=== PATIENT | female | born 2000 | race Caucasian/White ===

== ENCOUNTER 2023-04-22 18:00 | Emergency (ER) | payer MEDICAID, SELFPAY ==
[~2023-04-22] VITALS: Ht 152.4 cm; Wt 78.6 kg
[2023-04-22] MEDS ORDERED: MULTTAB20 PO (18:09)
[2023-04-22] MEDS ORDERED: ACET-683 PO (18:09)
[2023-04-22] MEDS ORDERED: METOCLOPRAMIDE INJ 10MG/2ML VIAL IV ONE (20:20)
[2023-04-22 21:13] LABS: BASO % 0.2 % (0.0-1.0); HEMATOCRIT 38.1 % (36.0-47.0); HEMOGLOBIN 13.4 g/dl (12.0-15.5); LYMPH # 1.6 10^3/uL (1.5-5.0); LYMPH % 11.6 % (24.0-44.0); MEAN CORPUSCULAR HEMOGLOBIN 29.6 pg (27.0-33.0); MEAN CORPUSCULAR HGB CONC 35.2 g/dl (32.0-36.5); MEAN CORPUSCULAR VOLUME 84.3 fl (80.0-96.0); MONO # 0.5 10^3/uL (0.0-0.8); MONO % 3.8 % (2.0-8.0); NEUTROPHILS # 11.8 10^3/uL (1.5-8.5); NEUTROPHILS % 84.1 % (36.0-66.0); PLATELET COUNT, AUTOMATED 250 10^3/uL (150-450); RED BLOOD COUNT 4.52 10^6/uL (4.00-5.40)
[2023-04-22 21:37] LABS: LIPASE 40 U/L (12-53)
[2023-04-22 21:39] LABS: ALKALINE PHOSPHATASE 71 U/L (46-116); ALT/SGPT 12 U/L (7.0-40); AST/SGOT 15 U/L (<34); BILIRUBIN,DIRECT 0.3 MG/DL (<0.4); BILIRUBIN,TOTAL 0.9 MG/DL (0.3-1.2); BLOOD UREA NITROGEN 8 MG/DL (9-23); CALCIUM LEVEL 9.3 MG/DL (8.5-10.1); CARBON DIOXIDE LEVEL 21 MMOL/L (20-31); CHLORIDE LEVEL 105 MMOL/L (98-107); CREATININE FOR GFR 0.39 MG/DL (0.55-1.30); GLOMERULAR FILTRATION RATE > 60.0 (>60); GLUCOSE, FASTING 88 MG/DL (60-100); POTASSIUM SERUM 3.9 MMOL/L (3.5-5.1); SODIUM LEVEL 139 MMOL/L (136-145); TOTAL PROTEIN 7.5 G/DL (5.7-8.2)
[2023-04-22 22:06] LABS: HCG, SERUM QUANTITATIVE 105521.6 MIU/ML (<4.2)
[2023-04-22 23:21] VITALS: BP 132/67; TEMP 97.6; O2SAT 99
[2023-04-22] MEDS ORDERED: REGL10TA6 PO (23:21)
== END 2023-04-22 23:32 | disposition home or self-care (01) ==
LOC: M ED 18:00
DX: O21.0 Mild hyperemesis gravidarum (principal)
CPT/HCPCS: 36415; 76801; 80048; 80076; 83690; 84702; 85025; 86850; 86900; 86901; 93976; 96374; 99284; J2765

== ENCOUNTER → 2023-05-13 | Outpatient (REF) ==
[~2023-05-13] MED LIST: ACET-683 PO; MULTTAB20 PO; REGL10TA6 PO
== END ==
LOC: M LAB 13:48
PROVIDERS: ATTEND Nurse Practitioner Adult Health
DX: Z02.1 Encounter for pre-employment examination (principal)

== ENCOUNTER → 2023-07-08 | Outpatient (CLI) | payer MEDICAID, OTHER | LOC: M WHC 12:52 | PROVIDERS: ATTEND Obstetrics & Gynecology | DX: O99.340 Other mental disorders complicating pregnancy, unspecified trimester (principal) ==

== ENCOUNTER → 2023-08-10 | Outpatient (CLI) | payer OTHER ==
[2023-08-10 16:26] LABS: HEMATOCRIT 35.2 % (36.0-47.0); HEMOGLOBIN 11.8 g/dl (12.0-15.5); MEAN CORPUSCULAR HEMOGLOBIN 30.4 pg (27.0-33.0); MEAN CORPUSCULAR HGB CONC 33.5 g/dl (32.0-36.5); MEAN CORPUSCULAR VOLUME 90.7 fl (80.0-96.0); PLATELET COUNT, AUTOMATED 220 10^3/uL (150-450); RED BLOOD COUNT 3.88 10^6/uL (4.00-5.40); WHITE BLOOD COUNT 11.2 10^3/uL (4.0-10.0)
[2023-08-10 17:18] LABS: HIV 1&2 SCREEN NEGATIVE (NEGATIVE)
[2023-08-10 17:25] LABS: HEPATITIS C VIRUS ABY INDEX < 0.02 INDEX (<0.8)
== END ==
LOC: M PLALAB 13:52
PROVIDERS: ATTEND Specialist
DX: Z34.02 Encounter for supervision of normal first pregnancy, second trimester (principal)

== ENCOUNTER → 2023-08-10 | Outpatient (CLI) | payer OTHER | LOC: M WHC 13:48 | PROVIDERS: ATTEND Specialist | DX: Z34.02 Encounter for supervision of normal first pregnancy, second trimester (principal) ==

== ENCOUNTER → 2023-08-18 | Outpatient (REF) | payer OTHER | LOC: M PLALAB 09:20 | PROVIDERS: ATTEND Obstetrics & Gynecology | DX: Z34.92 Encounter for supervision of normal pregnancy, unspecified, second trimester (principal); R82.90 Unspecified abnormal findings in urine ==

== ENCOUNTER → 2023-09-24 | Outpatient (CLI) | payer OTHER ==
[2023-09-24 17:47] LABS: HEMATOCRIT 34.1 % (36.0-47.0); HEMOGLOBIN 11.4 g/dl (12.0-15.5); MEAN CORPUSCULAR HEMOGLOBIN 29.7 pg (27.0-33.0); MEAN CORPUSCULAR HGB CONC 33.4 g/dl (32.0-36.5); MEAN CORPUSCULAR VOLUME 88.8 fl (80.0-96.0); PLATELET COUNT, AUTOMATED 228 10^3/uL (150-450); RED BLOOD COUNT 3.84 10^6/uL (4.00-5.40)
[2023-09-24 19:20] LABS: GC DNA AMPLIFICATION NEGATIVE (NEGATIVE)
== END ==
LOC: M PLALAB 15:01 → M LAB 15:01
PROVIDERS: ATTEND Obstetrics & Gynecology
DX: Z34.92 Encounter for supervision of normal pregnancy, unspecified, second trimester (principal)

== ENCOUNTER → 2023-10-20 | Outpatient (REF) | payer OTHER | LOC: M PLALAB 14:03 | PROVIDERS: ATTEND Obstetrics & Gynecology | DX: Z36.89 Encounter for other specified antenatal screening (principal); Z3A.36 36 weeks gestation of pregnancy ==

== ENCOUNTER 2023-10-24 01:32 | Emergency (ER) | payer OTHER ==
[2023-10-24 01:33] VITALS: BP 134/80; TEMP 97.8; O2SAT 92
== END 2023-10-24 01:45 | disposition admitted as inpatient to this hospital (09) ==
LOC: M ED 01:32
DX: Z53.21 Procedure and treatment not carried out due to patient leaving prior to being seen by health care provider (principal)

== ENCOUNTER 2023-10-24 01:41 | Outpatient (CLI) | payer OTHER ==
[~2023-10-24] VITALS: Ht 152.4 cm; Wt 99.9 kg
[2023-10-24] MEDS ORDERED: HOME MED LIST COMPLETE! XX SCH (03:10)
== END 2023-10-24 03:55 | disposition home or self-care (01) ==
LOC: M LDO 01:41
PROVIDERS: ATTEND Specialist
DX: O47.03 False labor before 37 completed weeks of gestation, third trimester (principal); O99.343 Other mental disorders complicating pregnancy, third trimester; F41.9 Anxiety disorder, unspecified; Z3A.36 36 weeks gestation of pregnancy
CPT/HCPCS: 59025; G0463

== ENCOUNTER 2023-11-05 22:00 | Outpatient (CLI) | payer OTHER ==
[~2023-11-05] VITALS: Ht 152.4 cm; Wt 102.7 kg
[2023-11-05] MEDS ORDERED: HOME MED LIST COMPLETE! XX SCH (22:20)
[2023-11-05 22:21] VITALS: BP 114/62
== END 2023-11-05 23:30 | disposition home or self-care (01) ==
LOC: M LDO 22:00
PROVIDERS: ATTEND Advanced Practice Midwife
DX: O47.1 False labor at or after 37 completed weeks of gestation (principal); O99.343 Other mental disorders complicating pregnancy, third trimester; F41.9 Anxiety disorder, unspecified; Z88.8 Allergy status to other drugs, medicaments and biological substances; Z3A.38 38 weeks gestation of pregnancy
CPT/HCPCS: 59025; G0463

== ENCOUNTER 2023-11-08 03:43 | Inpatient (IN) | payer OTHER ==
[2023-11-08] VITALS (44 sets, daily range): BP systolic 110–151; BP diastolic 57–95
[~2023-11-08] VITALS: Ht 152.4 cm; Wt 101.1 kg
[2023-11-08] MEDS ORDERED: HOME MED LIST COMPLETE! XX SCH ×2 (04:00→11:15)
[2023-11-08] MEDS ORDERED: TRANEXAMIC ACID INJection 1,000 MG in NS 100 ML IV PRN (04:30)
[2023-11-08] MEDS ORDERED: CARBOPROST TROMETHAMINE 250 MCG/ML AMP IM PRN (04:30)
[2023-11-08] MEDS ORDERED: OXYTOCIN DRIP 30 UNITS in IV 1 EA IV PRN (04:30)
[2023-11-08 05:15] LABS: HEMOGLOBIN 10.9 g/dl (12.0-15.5); MEAN CORPUSCULAR HEMOGLOBIN 28.2 pg (27.0-33.0); MEAN CORPUSCULAR VOLUME 85.5 fl (80.0-96.0); PLATELET COUNT, AUTOMATED 174 10^3/uL (150-450); RED BLOOD COUNT 3.86 10^6/uL (4.00-5.40); WHITE BLOOD COUNT 14.1 10^3/uL (4.0-10.0)
[2023-11-08 06:33] LABS: HEPATITIS C VIRUS ABY INDEX < 0.02 INDEX (<0.8)
[2023-11-08] MEDS: LR 1,000 ML IV SCH (09:06)
[2023-11-08] MEDS: OXYTOCIN DRIP 30 UNITS in IV 1 EA IV SCH (09:06)
[2023-11-08] MEDS: PROMETHAZINE 25MG/ML 1ML VIAL IV ONE (11:53)
[2023-11-08] MEDS: BUTORPHANOL 2 MG/ML 1ML VIAL IV ONE (11:53)
[2023-11-08] MEDS: LACTATED RINGER'S 1000 ML IV PRN (14:26)
[2023-11-08] MEDS ORDERED: EPIDURAL/PCA KEYS XX PRN (14:40)
[2023-11-08] MEDS ORDERED: LR 500 ML IV PRN (14:40)
[2023-11-08] MEDS ORDERED: ePHEDrine SULFATE 25 MG/5 ML(5MG/ML) SYRINGE IVP PRN (14:40)
[2023-11-08] MEDS ORDERED: diphenhydrAMINE 50MG/ML VIAL IV PRN (14:40)
[2023-11-08] MEDS ORDERED: ONDANSETRON 4MG 2ML VIAL IV PRN (14:40)
[2023-11-08] MEDS ORDERED: NALOXONE INJ 0.4MG/1ML VIAL IV PRN (14:40)
[2023-11-08] MEDS: FENTANYL/ROPIVACAINE/NACL BAG 100 ML EPIDURAL SCH (15:38)
[2023-11-08 22:01] LABS: CORD GAS ABE V -6.5; CORD GAS HCO3 V 19.3 MMOL/L; CORD GAS O2 SAT V 80.7 %; CORD GAS PCO2 V 39.5 mmHg; CORD GAS PH V 7.306 UNITS; CORD GAS PO2 V 38.3 mmHg; CORD GAS SBC V 18.9 MMOL/L; CORD GAS TCO2 V 20.5 MMOL/L
[2023-11-08 22:04] LABS: CORD GAS ABE A -14.2; CORD GAS O2 SAT A 27.2 %; CORD GAS PCO2 A 80.6 mmHg; CORD GAS PO2 A 18.3 mmHg; CORD GAS SBC A 12.5 MMOL/L; CORD GAS TCO2 A 21.5 MMOL/L
[2023-11-08 22:06] LABS: CORD GAS PH A 6.991 UNITS
[2023-11-08] MEDS ORDERED: LIDOCAINE 1% MDV 20ML VIAL As Ordered ONE (22:08)
[2023-11-08] MEDS: METHYLERGONOVINE MALEATE 0.2MG/ML 1ML VIAL IM PRN (22:11)
[2023-11-08] MEDS: LIDOCAINE 1% MDV 20ML VIAL SC ONE (22:22)
[2023-11-08] MEDS ORDERED: MOM 30ML SUSPENSION UDC PO PRN (23:45)
[2023-11-08] MEDS ORDERED: ANUSOL HC CREAM 30GM TOP PRN (23:45)
[2023-11-08] MEDS ORDERED: DIBUCAINE 1% OINTMENT 30GM TOP PRN (23:45)
[2023-11-08] MEDS ORDERED: DOCUSATE SODIUM 100MG CAPSULE PO PRN (23:45)
[2023-11-08] MEDS ORDERED: RHO(D) IMMUNE GLOBULIN/MALTOSE 500MCG(2500IU)/2.2ML VIAL (WINRHO) IM SCH (23:45)
[2023-11-08] MEDS ORDERED: IBUPROFEN 600MG TAB PO PRN (23:45)
[2023-11-08] MEDS: KETOROLAC 30 MG/ML 1ML VIAL IV ONE (23:46)
[2023-11-08] MEDS: AMPICILLIN SOD/SULBACTAM SOD 3 GM in D5W MINI-BAG PLUS 100 ML IV ONE (23:46)
[2023-11-09 00:40] VITALS: BP 111/58; O2SAT 96
[2023-11-09 06:07] VITALS: BP 112/56; O2SAT 98
[2023-11-09] MEDS: ACETAMINOPHEN 500 MG TAB PO PRN (08:04)
[2023-11-09] MEDS: PRENATAL VITAMINS CHEWABLE TABLET PO SCH (08:04)
[2023-11-09 18:00] VITALS: BP 130/67; O2SAT 98
[2023-11-10 06:00] VITALS: BP 136/80; O2SAT 96
[2023-11-10] MEDS: ACETAMINOPHEN TAB 650MG DOSE (2X325MG) PO PRN (08:47)
[2023-11-10] MEDS: MEASLES,MUMPS,RUBELLA VACCINE INJ (MMR-II) SC.IMMUN ONE (09:00)
[2023-11-10] MEDS: IBUPROFEN 800 MG TAB PO PRN (15:22)
== END 2023-11-10 15:30 | disposition home or self-care (01) | DRG 541 ==
LOC: M LDO 03:43 → M LDI 04:30 → M OBS 11-09 00:28
PROVIDERS: ADMIT Obstetrics & Gynecology; ATTEND Advanced Practice Midwife
PROC: 10E0XZZ Delivery of Products of Conception, External Approach (ICD-10-PCS; principal; 2023-11-08)
PROC: 10D17Z9 Manual Extraction of Products of Conception, Retained, Via Natural or Artificial Opening (ICD-10-PCS; 2023-11-08)
DX: O22.43 Hemorrhoids in pregnancy, third trimester (principal); O73.0 Retained placenta without hemorrhage; Z37.0 Single live birth; Z3A.39 39 weeks gestation of pregnancy

== ENCOUNTER 2024-02-01 22:12 | Inpatient (IN) | payer MEDICAID, OTHER ==
[~2024-02-01] VITALS: Ht 154.9 cm; Wt 82.2 kg
[2024-02-01 23:11] LABS: HEMATOCRIT 37.1 % (36.0-47.0); HEMOGLOBIN 11.9 g/dl (12.0-15.5); MEAN CORPUSCULAR HEMOGLOBIN 25.5 pg (27.0-33.0); MEAN CORPUSCULAR HGB CONC 32.1 g/dl (32.0-36.5); MEAN CORPUSCULAR VOLUME 79.6 fl (80.0-96.0); PLATELET COUNT, AUTOMATED 284 10^3/uL (150-450); RED BLOOD COUNT 4.66 10^6/uL (4.00-5.40); WHITE BLOOD COUNT 7.4 10^3/uL (4.0-10.0)
[2024-02-01 23:35] LABS: AMPHETAMINES LEVEL URINE NEGATIVE (NEGATIVE)
[2024-02-01 23:36] LABS: BARBITURATES URINE NEGATIVE (NEGATIVE); BENZODIAZEPINES URINE NEGATIVE (NEGATIVE); COCAINE METABOLITE URINE NEGATIVE (NEGATIVE); METHADONE URINE NEGATIVE (NEGATIVE); OPIATES URINE NEGATIVE (NEGATIVE); PHENCYCLIDINE URINE NEGATIVE (NEGATIVE)
[2024-02-01 23:37] LABS: ETHYL ALCOHOL (ETHANOL) 0.003 % (0.000-0.010)
[2024-02-01 23:38] LABS: SALICYLATE LEVEL < 3.0 MG/DL (<30)
[2024-02-01 23:39] LABS: ALBUMIN 4.3 G/DL (3.2-5.2); ALKALINE PHOSPHATASE 119 U/L (46-116); ALT/SGPT 41 U/L (7.0-40); AST/SGOT 33 U/L (<34); BILIRUBIN,DIRECT 0.2 MG/DL (<0.4); BILIRUBIN,TOTAL 0.7 MG/DL (0.3-1.2); BLOOD UREA NITROGEN 5 MG/DL (9-23); CALCIUM LEVEL 9.5 MG/DL (8.5-10.1); CARBON DIOXIDE LEVEL 25 MMOL/L (20-31); CHLORIDE LEVEL 107 MMOL/L (98-107); CREATININE FOR GFR 0.62 MG/DL (0.55-1.30); GLOMERULAR FILTRATION RATE > 60.0 (>60); GLUCOSE, FASTING 100 MG/DL (60-100); POTASSIUM SERUM 3.7 MMOL/L (3.5-5.1); SODIUM LEVEL 140 MMOL/L (136-145); TOTAL PROTEIN 7.4 G/DL (5.7-8.2)
[2024-02-01 23:42] LABS: THYROID STIMULATING HORMONE 1.172 uIU/ML (0.55-4.78)
[2024-02-01 23:50] LABS: CANNABINOIDS URINE POSITIVE (NEGATIVE)
[2024-02-02] MEDS ORDERED: HOME MED LIST COMPLETE! XX SCH (00:25)
[2024-02-02] MEDS ORDERED: diphenhydrAMINE 25MG CAP PO PRN (01:20)
[2024-02-02] MEDS ORDERED: traZODone 50 MG TAB PO PRN (01:20)
[2024-02-02] MEDS ORDERED: MAALOX 30 ML SUSP *UDC PO PRN (01:20)
[2024-02-02] MEDS ORDERED: IBUPROFEN 400MG TAB PO PRN (01:20)
[2024-02-02] MEDS ORDERED: ACETAMINOPHEN TAB 650MG DOSE (2X325MG) PO PRN (01:20)
[2024-02-02] MEDS ORDERED: MOM 30ML SUSPENSION UDC PO PRN (01:20)
[2024-02-02 04:35] VITALS: BP 125/74; TEMP 97.8; O2SAT 99
[2024-02-02] MEDS: lamoTRIgine 25MG TAB PO SCH (11:20)
[2024-02-02] MEDS: NICOTINE 21MG/24HR 1 EA TRANSDERMAL TD PRN (12:30)
[2024-02-02 15:22] LABS: IRON (FE) 14 UG/DL (50-170)
[2024-02-02 15:23] LABS: FERRITIN 14.7 NG/ML (7.3-270.7); FOLATE > 24.00 NG/ML (>5.4); PERCENT SATURATION 4.7 % (13.2-45.0); TOTAL IRON BINDING CAPACITY 298 UG/DL (250-425)
[2024-02-02 15:24] LABS: VITAMIN B12 LEVEL 727 PG/ML (211-911)
[2024-02-02 17:25] VITALS: BP 122/61; TEMP 98
[2024-02-03 06:29] VITALS: BP 127/70; TEMP 97; O2SAT 99
[2024-02-03] MEDS ORDERED: NICO21PAT TD (07:45)
[2024-02-03] MEDS ORDERED: LAMI25TA PO (07:45)
[2024-02-03] MEDS ORDERED: FERR1TAB8 PO (07:45)
[2024-02-03] MEDS: FERROUS SULFATE 325MG TAB PO SCH (08:07)
[2024-02-03 18:52] VITALS: BP 133/75; TEMP 97.7; O2SAT 100
[2024-02-04] MEDS ORDERED: lamoTRIgine 25MG TAB As Ordered ONE (08:10)
[2024-02-04] MEDS ORDERED: FERROUS SULFATE 325MG TAB As Ordered ONE (08:10)
== END 2024-02-04 13:02 | disposition home or self-care (01) | DRG 757 ==
LOC: M ED 22:12 → M ED INP 02-02 01:17 → M PSY 02-02 03:37
PROVIDERS: ADMIT Student in an Organized Health Care Education/Training Program; ATTEND Student in an Organized Health Care Education/Training Program
DX: F53.0 Postpartum depression (principal); R45.851 Suicidal ideations; F41.9 Anxiety disorder, unspecified; F17.290 Nicotine dependence, other tobacco product, uncomplicated; D50.9 Iron deficiency anemia, unspecified; F40.10 Social phobia, unspecified; Z81.8 Family history of other mental and behavioral disorders; Z91.52 Personal history of nonsuicidal self-harm; Z79.899 Other long term (current) drug therapy; Z88.1 Allergy status to other antibiotic agents; Z91.51 Personal history of suicidal behavior